=== PATIENT | male | born 1975 | race Hispanic/Latino ===

== ENCOUNTER 2024-07-18 12:07 | Emergency (ER) | payer BC ==
[~2024-07-18] VITALS: Ht 175.3 cm; Wt 90.7 kg
[2024-07-18] MEDS: ibuPROFEN 800 MG TAB PO ONE (13:15)
[2024-07-18] MEDS ORDERED: IBUP-2077 PO (13:16)
[2024-07-18 13:22] VITALS: BP 128/77; PULSE 88; RESP 14; TEMP 98.1; O2SAT 97
== END 2024-07-18 13:28 | disposition home or self-care (01) ==
LOC: EDH 12:07
DX: S46.191A Other injury of muscle, fascia and tendon of long head of biceps, right arm, initial encounter (principal); X58.XXXA Exposure to other specified factors, initial encounter; Y93.72 Activity, wrestling; Y92.89 Other specified places as the place of occurrence of the external cause; Y99.8 Other external cause status
CPT/HCPCS: 73080

== ENCOUNTER 2025-03-07 20:36 | Emergency (ER) | payer BC ==
[~2025-03-07] VITALS: Ht 175.3 cm; Wt 94.3 kg
[~2025-03-07 20:36] MED LIST: IBUP-2077 PO
[2025-03-07] MEDS: TRIAMCINOLONE ACETONIDE 40 MG/ML 1ML VIAL IM ONE (21:05)
[2025-03-07] MEDS: ORPHENADRINE 60MG/2ML IM ONE (21:06)
--- NOTE | 2025-03-07 21:20 | HMCIMG ---
LUMBAR SPINE RADIOGRAPHS - 2-3 VIEWS INDICATION: Back pain COMPARISON: None FINDINGS: AP, lateral, and coned-down lateral views. Straightening of the normal lumbar lordosis. Five nonrib-bearing lumbar vertebral bodies are noted. No acute fracture or subluxation identified. Vertebral body heights are well-maintained. Multilevel mild to moderate anterior endplate osteophytic spurring. Moderate disc height loss at the L4-L5 and L5-S1 levels. L4-S1 fusion hardware appears normal. IMPRESSION: No fracture or subluxation identified.
[2025-03-07 21:50] VITALS: BP 147/87; PULSE 75; RESP 18; TEMP 98.6; O2SAT 99
[2025-03-07] MEDS ORDERED: CYCL10TA16 PO (22:42)
[2025-03-07] MEDS ORDERED: IBUP-2070 PO (22:42)
--- NOTE | 2025-03-07 22:42 | ERN ---
ED Note History of Present Illness Stated Complaint: FALL, BACK PAIN Chief Complaint: Mechanical Fall Time Seen by MD: 20:37 Time Seen by Midlevel: 20:37 Dictation: The Patient is a 49-year-old male with a history of back surgery who presents to the emergency department with complaints of low back pain after a slip and fall from a couple steps. Patient reports that he slipped and his back landed on one of the steps. Onset was just prior to arrival. Patient denies any urinary or fecal incontinence denies any head trauma or any other injury. Denies any use of blood thinners. Denies any lower extremity numbness or tingling. Allergies: Coded Allergies: No Known Drug Allergies (Unverified Allergy, Unknown, 07/18/24) Home Meds Active Scripts Cyclobenzaprine HCl (Flexeril) 10 Mg Tab, 10 MG PO TID for muscle sstiffness, #14 TAB 0 Refills Prov:DILEEP BALL PERFECT BINDER FEEDER OFFBEARER 03/07/25 Ibuprofen (Ibuprofen) 600 Mg Tablet, 600 MG PO Q6H PRN for PAIN, #15 TAB Prov:DILEEP BALL PERFECT BINDER FEEDER OFFBEARER 03/07/25 Ibuprofen (Ibuprofen 800 mg Tab) 800 Mg Tab, 800 MG PO Q8H PRN for fever or pain, #30 TAB 0 Refills Prov:LUIGI ESPINOZA REHEATER HELPER 07/18/24 Past Medical History Past Medical History: No Pertinent History Surgical History: None RN Note Reviewed/Agreed w/PFSH: Yes Review of System Dictation Constitutional: Negative for fever,chills, and weight loss Eyes: Negative for injury, pain,redness, and discharge ENT: Negative for injury,pain or swelling Cardiovascular: Negative for chest pain, palpitations, and edema Respiratory: Negative for shortness of breath, cough, and wheezing, Abdomen/GI: Negative for abdominal pain, nausea, vomiting, diarrhea, and constipation Back: Positive for low back pain : Negative for injury, bleeding and discharge MS/Extremity: Negative for injury and deformity Skin: Negative for rash, and discoloration Neuro: Negative for headache, weakness, numbness, tingling, and seizure Psych: Negative for suicide ideation, homicidal ideation, and hallucinations Initial Vital Sign VS Vital Signs Date Time Temp Pulse Resp B/P (MAP) Pulse Ox O2 Delivery O2 Flow Rate FiO2 03/07/25 20:37 97.9 76 18 160/100 100 Room Air 03/07/25 21:50 0 21 Physical Exam Dictation Vital Signs reviewed General Appearance: Alert, oriented x 3, no acute distress, well developed, nourished. Head and Face: non-traumatic. Eyes: PERRL, pink conjunctivas, eyelid no trauma, anterior chamber with arcus senilis. Ears: Pinnas intact and no signs of trauma or erythema ear canals clear and no discharge TM no erythema Nose: No discharge, no bleeding. Oropharynx: Mouth normal, tongue pink. pharynx clear,no erythema, tonsils no exudates, no abscesses noted, mucous membrane moist Neck: Supple, non-tender, no thyromegaly, no masses, no JVD, no bruits Breast:Deferred Chest:No tenderness, no crepitus, no paradoxical movement, no retractions Lungs:Clear, well-ventilated, symmetric, no rales, no wheezing, no rhonchi, no stridor, good breath sounds bilaterally Heart: Regular rate, regular rhythm, no murmur, no gallops Vascular: no peripheral edema, dorsalis pedis 3+ Abdomen: Soft, positive bowel sounds, nondistended, no guarding, nontender, no rebound, no masses no hepatomegaly, no splenomegaly, no Conn's sign, no hernias. Rectal: Deferred Genital: Deferred Neurological: Normal speech, motor function intact, sensory function intact Musculoskeletal: Neck nontender, full range of motion, full range of motion, low back tenderness, slight edema to right lower side but no bruising, no deformities Extremities: nontender, full range of motion Skin: Color pink, dry, no turgor, no rash, no lacerations, no abrasions, no contusions. Lymphatic: Deferred Results (Laboratory/Radiology) Laboratory/Radiology SERVICE 41 REASON: back pain ORDERING PHYSICIAN: DILEEP BALL PERFECT BINDER FEEDER OFFBEARER PROCEDURE: LUMB 2 3VW - LUMBAR SPINE 2-3VWS LUMBAR SPINE RADIOGRAPHS - 2-3 VIEWS INDICATION: Back pain COMPARISON: None FINDINGS: AP, lateral, and coned-down lateral views. Straightening of the normal lumbar lordosis. Five nonrib-bearing lumbar vertebral bodies are noted. No acute fracture or subluxation identified. Vertebral body heights are well-maintained. Multilevel mild to moderate anterior endplate osteophytic spurring. Moderate disc height loss at the L4-L5 and L5-S1 levels. L4-S1 fusion hardware appears normal. IMPRESSION: No fracture or subluxation identified. Labs Reviewed?: Yes ED Course ED Course Orders Procedure Category Date Status Time Lumbar Spine 2-3vws RAD 03/07/25 Resulted 20:42 Triamcinolone Acet PHA 03/07/25 Complete 40mg/Ml 1ml (Kenalog 21:00 Orphenadrine Citrate PHA 03/07/25 Complete (Norflex) 21:00 Current Medications Medications (Trade) Dose Ordered Sig/Mary Route PRN Reason Start Time Stop Time Status Last Admin Dose Admin Orphenadrine Citrate (Norflex) 60 mg ONCE ONCE IM 03/07/25 21:00 03/07/25 21:01 DC 03/07/25 21:06 Triamcinolone Acetonide (Kenalog 40) 40 mg ONCE ONCE IM 03/07/25 21:00 03/07/25 21:01 DC 03/07/25 21:05 Vital Signs Date Time Temp Pulse Resp B/P (MAP) Pulse Ox O2 Delivery O2 Flow Rate FiO2 03/07/25 21:50 98.6 75 18 147/87 99 Room Air* 0 21 03/07/25 20:37 97.9 76 18 160/100 100 Room Air Medical Decision Making MDM The Patient is a 49-year-old male with a history of back surgery who presents to the emergency department with complaints of low back pain after a slip and fall from a couple steps. Patient reports that he slipped and his back landed on one of the steps. Onset was just prior to arrival. Patient denies any urinary or fecal incontinence denies any head trauma or any other injury. Denies any use of blood thinners. Denies any lower extremity numbness or tingling. X-ray showed no acute fractures as subluxation on physical exam patient slight tenderness to lower back and right lower back. No bruising noted to back a small horizontal linear abrasion noted but no active bleeding, patient in no acute distress, ambulatory, neurovascularly intact. Patient will be discharged to follow up with PCP. Differential diagnosis: Back contusion, muscle spasm, lumbar fracture Need for hospitalization: Patient does not meet criteria for hospitalization. There are no social concerns with this patient. DX & DISP Disposition: Discharge Departure Impression: Primary Impression: Fall Additional Impression: Contusion of lower back Condition: Stable Scripts Cyclobenzaprine HCl (Flexeril) 10 Mg Tab 10 MG PO TID for muscle sstiffness, #14 TAB 0 Refills Prov: BALLDILEEP 03/07/25 Ibuprofen (Ibuprofen) 600 Mg Tablet 600 MG PO Q6H PRN for PAIN, #15 TAB Prov: DILEEP BALL AJAY 03/07/25 Additional Instructions: Your xrays showed no acute fractures or dislocations. Please follow up with your primary doctor in 1-2 days. If your symptoms worsen, you develop severe pain or anything changes please return to ER. FOLLOW-UP WITH PRIMARY CARE PROVIDER IN 1 TO 2 DAYS. TAKE MEDICATIONS DIRECTED HERE IN THE EMERGENCY ROOM. OKAY TO CONTINUE HOME MEDICATIONS UNLESS OTHERWISE DISCUSSED DURING YOUR VISIT IN THE EMERGENCY ROOM TODAY. RETURN TO YOUR NEAREST EMERGENCY ROOM IF SYMPTOMS WORSEN OR IF THERE IS NO IMPROVEMENT. CALL 911 IF YOU NEED IMMEDIATE ASSISTANCE. TAKE TYLENOL [id number] NEEDED AND IF NO CONTRAINDICATIONS ARE PRESENT. INCREASE ORAL HYDRATION. A WOUND CULTURE OR URINE CULTURE WAS ORDERED HERE IN THE EMERGENCY ROOM DEPARTMENT PLEASE FOLLOW-UP WITH PRIMARY CARE PROVIDER AND ADVISE THEM TO GET REPEAT PORTS FROM OUR FACILITY. IF YOU HAD ANY JAREK WRAP/SPLINTS THAT WERE APPLIED HERE, PLEASE DO NOT REMOVE THEM UNTIL YOU SEE YOUR PRIMARY CARE OR SPECIALTY. Referrals: CLIVE REYEZ (PCP) Time of Disposition: 22:39 I have reviewed the case, and I agree with, Diagnosis and Plan DILEEP BALL AJAY Mar 07, 2025 22:42 JAKE CROWLEY DO Mar 08, 2025 04:03
== END 2025-03-07 22:46 | disposition home or self-care (01) ==
LOC: EDH 20:36
DX: S30.0XXA Contusion of lower back and pelvis, initial encounter (principal); Z79.899 Other long term (current) drug therapy; W01.0XXA Fall on same level from slipping, tripping and stumbling without subsequent striking against object, initial encounter; Y93.89 Activity, other specified; Y92.89 Other specified places as the place of occurrence of the external cause; Y99.8 Other external cause status
CPT/HCPCS: 99284; 72100; 96372 ×2; J3301; J2360